=== PATIENT | female | born 1985 | race Caucasian/White ===

== ENCOUNTER 2018-12-04 10:50 | Outpatient (CLI) | payer BC, SELFPAY ==
[2018-12-04 12:54] LABS: TSH (W/Ref FT4) 3.29 uIU/mL (0.358-3.74)
== END 2018-12-04 11:10 ==
PROVIDERS: PCP Nurse Practitioner Family; Visit Provider Nurse Practitioner Family
DX: N92.0 Excessive and frequent menstruation with regular cycle (principal)
CPT/HCPCS: 36415; 84443

== ENCOUNTER 2018-12-17 00:55 | Outpatient (CLI) | payer BC, SELFPAY ==
--- NOTE | 2018-12-17 16:00 | DI.MAMMO_ITS ---
SYMPTOM/DIAGNOSIS: SCREENING, Z12.31, FAMILY H/O BREAST CA MAMMOGRAMS: Mammograms were interpreted according to the usual protocol including computer analysis with CAD system, tomosynthesis and C view imaging. No priors for comparison. Breast density, category C. No suspicious masses or microcalcifications are seen. There is no definite evidence of malignancy. IMPRESSION: Negative mammogram. Routine screening is recommended. Category 1C. MQSA ASSESSMENT OF FINDINGS: Negative. Category 1. Patient will receive a letter notifying them of these results. Bi-RADS category C. The breasts are heterogeneously dense, which may obscure small masses.
== END 2018-12-17 01:15 ==
PROVIDERS: PCP Nurse Practitioner Family; Visit Provider Nurse Practitioner Family
DX: Z12.31 Encounter for screening mammogram for malignant neoplasm of breast (principal); Z80.3 Family history of malignant neoplasm of breast
CPT/HCPCS: 77063; 77067

== ENCOUNTER 2019-12-17 10:32 | Outpatient (REF) | payer OTHER, SELFPAY ==
--- NOTE | 2019-12-17 08:30 | PAPFT_PTH ---
PATIENT: Enriqueta Fontanez LOC: [facility] U#:[id number] AGE/SX: 34/F ROOM: RE12/17/[address]: SELVIN Bunch : 1985 BED: DIS: 12/17/2019 SPEC #: [id number] RECD: 12/17/19 12:57 STATUS: SUSHMA ADKINS #: [id number] JONES: 12/17/19 08:[address]: Ella Murray DEPT: [facility] Cytology RECD BY: Tierra Shukla ENTERED: 12/17/19 12:57 SP TYPE: PAPFT OTHR DR: Damari White Tissues: 1 - CX/ENDOCX FOR PAP SMEARS Procedures: PAP THIN PREP/UVM Screening HPV DNA PROBE Comments: [id number]
== END 2019-12-17 10:52 ==
LOC: LBN 10:32
PROVIDERS: PCP Nurse Practitioner Family; Visit Provider Nurse Practitioner Family
DX: Z12.4 Encounter for screening for malignant neoplasm of cervix (principal); Z11.51 Encounter for screening for human papillomavirus (HPV)
CPT/HCPCS: 88142; 87624

== ENCOUNTER 2020-01-13 01:20 | Outpatient (CLI) | payer OTHER, SELFPAY ==
--- NOTE | 2020-01-13 16:00 | DI.MAMMO_ITS ---
EXAM: MG MAMMO SCREENING CLINICAL HISTORY: screening. TECHNIQUE: Bilateral full field digital CC and MLO mammographic images were obtained with 3D tomosyn thesis and utilizing computer aided detection (CAD). COMPARISON: Available for comparison. FINDINGS: Masses/Architectural Distortion: None seen. Microcalcifications: No suspicious pleomorphic-type are seen. Skin Thickening/Nipple Retraction: None. IMPRESSION: 1. No significant interval change with no specific features of malignancy noted. 2. Unless there is more urgent need, screening mammography is recommended, as per [employer] [place] guidelines. ACR BI-RAD Category- 1 Negative Breast Density - Category C - Heterogeneously dense The mammogram demonstrates the patient's breast tissue is dense. Dense breast tissue is very common a nd is not abnormal but dense breast tissue can make it harder to find cancer on a mammogram. Also, de nse breast tissue may increase their breast cancer risk. This information about the result of the [facility] mogram report was provided to the patient to raise their awareness. Use this report when you speak wi th the patient about their risks for breast cancer, which includes their family history. At that time , you may recommend for more screening tests (Ultrasound or MRI) as they might be useful based on the ir risk. A negative radiographic report should not delay biopsy if a dominant or clinically suspicious mass is present. Up to ten percent of cancers are not identified on mammography. A negative report may reinforce clinical impression. Adenosis and dense breasts may obscure an underlying neoplasm. False positive reports average 6 to 10%. Patient will receive a letter notifying them of these results.
== END 2020-01-13 01:40 ==
PROVIDERS: PCP Nurse Practitioner; Visit Provider Nurse Practitioner Family
DX: Z12.31 Encounter for screening mammogram for malignant neoplasm of breast (principal)
CPT/HCPCS: 77063; 77067

== ENCOUNTER → 2020-12-15 09:47 | Outpatient (REF) | payer BC, SELFPAY ==
--- OUTSIDE RECORDS SUMMARY | 2020-12-15 10:06 | XMS_ITS ---
:1985 External Reference #:[id number] Author Care Team Providers Name Role Phone [facility] Primary Care Provider Unavailable Allergies None recorded. Medications None recorded. Problems None recorded. Procedures Date Name Performed by ? 03/02/2016 Appendectomy Information not avai lable Results Lab Results None recorded. Past Encounters None recorded. Social History Tobacco Smoking Status Never Smoker Vaccine List None recorded. Plan of Care Reminders Provider Appointments None ? ? recorded. Lab None ? ? recorded. Referral None ? ? recorded. Procedures None ? ? recorded. Surgeries None ? ? recorded. Imaging None ? ? recorded. Vitals 02/07/2017 01:00PM ESTABLISHED PATIENT 15 Height Weight BMI 5 ft 1 in 166 lbs 9.6 oz 31.5 kg/m2 11/13/2016 02:00PM NEW PATIENT 60 Height Weight BMI Blood Pressure 5 ft 1 in 164 lbs 16 oz 31.2 kg/m2 110/80 mm[Hg]
[2020-12-15 13:27] LABS: HCT 34.4 % (36.0-46.0); HGB 11.1 g/dL (11.2-15.7); MCHC 32.3 % (32.0-36.0); MCV 86.9 fL (80-95); MPV 11.1 fL (8.0-11.0); Platelet Count 232 10^3/uL (130-400); RBC 3.96 10^6/uL (3.93-5.22); RDW-SD 44.7 fL; WBC 4.24 10^3/uL (4.4-10.8)
[2020-12-15 13:57] LABS: Calculated LDL 105 mg/dL (<100); Cholesterol 172 mg/dL (<200); HDL Cholesterol 54 mg/dL (40-60); TSH 6.18 uIU/mL (0.36-3.74); Triglyceride 66 mg/dL (<150)
[2020-12-15 14:16] LABS: FREE T4 0.98 ng/dL (0.76-1.46)
[2020-12-17 00:08] LABS: Thyroperoxidase Antibody 690 U/mL (<=60)
== END ==
LOC: NCHCN 09:47
PROVIDERS: PCP Nurse Practitioner; Visit Provider Physician Assistant
DX: R53.83 Other fatigue (principal); G47.00 Insomnia, unspecified; Z13.220 Encounter for screening for lipoid disorders
CPT/HCPCS: 80061; 85027; 84439; 84443; 86376

== ENCOUNTER 2021-01-16 00:46 | Outpatient (CLI) | payer BC, SELFPAY ==
--- NOTE | 2021-01-16 09:00 | DI.MAMMO_ITS ---
EXAM: MG MAMMO SCREENING CLINICAL HISTORY: screening,Z12.39. TECHNIQUE: Bilateral full field digital CC and MLO mammographic images were obtained with 3D tomosyn thesis and utilizing computer aided detection (CAD). COMPARISON: Prior mammograms performed 2018 and January 2020. FINDINGS: The fibroglandular tissue pattern is again noted be quite dense, this decreasing the sensitivity of t he mammogram for finding hidden underlying lesions. There are no obvious spiculated masses nor malignant appearing microcalcification groups. There is n o significant architectural distortion nor skin thickening-retraction. IMPRESSION: Dense bilateral fibroglandular tissue. No obvious radiographic evidence of malignancy. BI-RADS Category 1 - Negative Breast Density - Category D - Extremely dense Breast density Category C or D implies that the patient has dense breast tissue. Dense breast tissue can make it harder to find cancer on a mammogram. Dense breast tissue is also associated with an incr eased risk of breast cancer. This information about the result of the mammogram report was provided to the patient to raise their awareness. Use this report when you speak with the patient about their risks for breast cancer, which includes their family history. At that time, you may recommend additional screening tests (Ultrasoun d or MRI) as these tests may add significant information. A negative radiographic report should not delay biopsy if a dominant or clinically suspicious mass is present. Up to ten percent of cancers are not identified on mammography. A negative report may reinforce clinical impression. Adenosis and dense breasts may obscure an underlying neoplasm. False positive reports average 6 to 10%. Patient will receive a letter notifying them of these results.
--- NOTE | 2021-01-16 09:00 | DI.US_ITS ---
EXAM: US PELVIS TRANSVAGINAL CLINICAL HISTORY: MENORRHAGIA, HEAVY PERIODS, ANEMIA, N92.0 TECHNIQUE: Ultrasound of the pelvis was performed both transabdominal and transvaginal. COMPARISON: No exams were available for comparison FINDINGS: UTERUS: Measures 11.9 cm length x 4.0 cm AP x 6.5 cm wide. There are no uterine fibroids. Endometrial thickness measures 7 mm. There is no fluid in the endometrial canal. CERVIX: There are no obvious nabothian cysts. RIGHT OVARY: Measures 3.4 x 2.2 x 2.3 cm In addition to follicular cysts there is a dominant follicular cyst which measures 2.7 x 2.1 x 2.2 cm . LEFT OVARY: Measures 2.8 x 1.9 x 2.1 cm Small follicular cysts. No solid lesions. CUL-DE-SAC: No free fluid evident. There no extraovarian adnexal masses IMPRESSION: 1. Normal appearing uterus and age-appropriate endometrium. 2. There is a 27 x 21 x 22 millimeter cyst in the right ovary, probably follicular. 3. No free fluid evident in the adnexal regions and cul-de-sac. DATA REPOSITORY:
== END 2021-01-16 00:47 ==
LOC: DI 00:47
PROVIDERS: PCP Nurse Practitioner; Visit Provider Nurse Practitioner Family
DX: Z12.31 Encounter for screening mammogram for malignant neoplasm of breast (principal); N92.0 Excessive and frequent menstruation with regular cycle; N83.201 Unspecified ovarian cyst, right side
CPT/HCPCS: 77063; 77067; 76830; 76856

== ENCOUNTER 2021-07-11 14:47 | Outpatient (REF) | payer BC, SELFPAY ==
[2021-07-11 14:02] LABS: HCT 36.9 % (36.0-46.0)
[2021-07-11 14:30] LABS: TSH 1.88 uIU/mL (0.36-3.74)
== END 2021-07-11 14:48 | disposition home or self-care (01) ==
LOC: NCHCN 14:47
PROVIDERS: PCP Nurse Practitioner; Visit Provider Physician Assistant
DX: D64.9 Anemia, unspecified (principal); E03.9 Hypothyroidism, unspecified
CPT/HCPCS: 84443; 85014; 85018

== ENCOUNTER 2022-01-11 10:44 | Outpatient (REF) | payer BC, SELFPAY ==
[2022-01-11 16:06] LABS: TSH 1.74 uIU/mL (0.36-3.74)
== END 2022-01-11 10:45 | disposition home or self-care (01) ==
LOC: NCHCN 10:44
PROVIDERS: PCP Nurse Practitioner; Visit Provider Physician Assistant
DX: E03.9 Hypothyroidism, unspecified (principal)
CPT/HCPCS: 84443

== ENCOUNTER → 2022-06-11 02:12 | Outpatient (CLI) | payer BC, SELFPAY ==
--- NOTE | 2022-06-11 17:00 | DI.MAMMO_ITS ---
Exam(s) MAMMO SCREENING EXAM: MAMMO SCREENING CLINICAL HISTORY: screening. TECHNIQUE: Bilateral full field digital CC and MLO mammographic images were obtained with 3D tomosyn thesis and utilizing computer aided detection (CAD). COMPARISON: Prior mammograms were reviewed, the most recent being January 2021. FINDINGS: Fibroglandular tissue pattern is again noted be dense, this somewhat decreasing the sensitivity of th e mammogram finding hidden lesions. There are no new spiculated masses nor malignant appearing microcalcification groups. There is no significant architectural distortion nor skin thickening-retraction. IMPRESSION: Dense bilateral fibroglandular tissue. No obvious radiographic evidence of malignancy. Given the de nsity of this patient's fibroglandular tissue and very significant family history I recommend bilater al breast ultrasound. BI-RADS Category 0 - Assessment Incomplete: Need additional imaging evaluation Breast Density - Category D - Extremely dense Breast density Category C or D implies that the patient has dense breast tissue. Dense breast tissue can make it harder to find cancer on a mammogram. Dense breast tissue is also associated with an incr eased risk of breast cancer. This information about the result of the mammogram report was provided to the patient to raise their awareness. Use this report when you speak with the patient about their risks for breast cancer, which includes their family history. At that time, you may recommend additional screening tests (Ultrasoun d or MRI) as these tests may add significant information. A negative radiographic report should not delay biopsy if a dominant or clinically suspicious mass is present. Up to ten percent of cancers are not identified on mammography. A negative report may reinforce clinical impression. Adenosis and dense breasts may obscure an underlying neoplasm. False positive reports average 6 to 10%. Patient will receive a letter notifying them of these results.
== END ==
PROVIDERS: PCP Nurse Practitioner; Visit Provider Nurse Practitioner Family
DX: Z12.31 Encounter for screening mammogram for malignant neoplasm of breast (principal); Z80.3 Family history of malignant neoplasm of breast; R92.2 Inconclusive mammogram
CPT/HCPCS: 77063; 77067

== ENCOUNTER 2023-01-02 15:43 | Outpatient (REF) | payer BC, SELFPAY ==
[2023-01-02 20:27] LABS: TSH 2.59 uIU/mL (0.36-3.74)
== END 2023-01-02 15:44 | disposition home or self-care (01) ==
LOC: NCHCN 15:43
PROVIDERS: PCP Nurse Practitioner Family; Visit Provider Physician Assistant
DX: E03.9 Hypothyroidism, unspecified (principal)
CPT/HCPCS: 84443

== ENCOUNTER → 2023-08-22 02:43 | Outpatient (CLI) | payer OTHER, SELFPAY ==
--- NOTE | 2023-08-22 08:15 | DI.MAMMO_ITS ---
Exam(s) US BREAST RT LIMITED MG MAMMO DIAGNOSTIC BI EXAM: MG MAMMO DIAGNOSTIC BI and U/S breast RT limited CLINICAL HISTORY: dense breast tissue, ? lump vs lymph node R armpit,family h/o breast ca,n63. TECHNIQUE: Craniocaudal and mediolateral oblique Full Field Digital Mammography views of the right b reast with Computer Aided Diagnosis followed by Tomosynthesis and right breast ultrasound. COMPARISON: Comparison is made with prior examinations. FINDINGS: Mammography/Tomosynthesis: Masses/Architectural Distortion: None seen. Microcalcifictions: No suspicious pleomorphic-type are seen. Skin Thickening/Nipple Retraction: None. Limited right breast US: Echotexture: Normal appearance of the glandular tissue. Shadowing: No suspicious foci. Cyst: None. Solid lesions: None seen. Ductal dilation: None. IMPRESSION: 1. No evidence of malignancy is noted. 2. Unless there is more urgent need, follow-up screening mammography is recommended, as per [place] guidelines. 3. The findings were discussed with the patient on the date of the examination. BI-RADS Category 1 - Negative Breast Density - Category D - Extremely dense Breast density Category C or D implies that the patient has dense breast tissue. Dense breast tissue can make it harder to find cancer on a mammogram. Dense breast tissue is also associated with an incr eased risk of breast cancer. This information about the result of the mammogram report was provided to the patient to raise their awareness. Use this report when you speak with the patient about their risks for breast cancer, which includes their family history. At that time, you may recommend additional screening tests (Ultrasoun d or MRI) as these tests may add significant information. A negative radiographic report should not delay biopsy if a dominant or clinically suspicious mass is present. Up to ten percent of cancers are not identified on mammography. A negative report may reinforce clinical impression. Adenosis and dense breasts may obscure an underlying neoplasm. False positive reports average 6 to 10%. Patient will receive a letter notifying them of these results.
== END ==
LOC: DI 02:44
PROVIDERS: PCP Physician Assistant; Visit Provider Nurse Practitioner Women's Health
DX: Z12.31 Encounter for screening mammogram for malignant neoplasm of breast (principal); Z80.3 Family history of malignant neoplasm of breast; R92.8 Other abnormal and inconclusive findings on diagnostic imaging of breast
CPT/HCPCS: 76642; 77062; 77066; G0279

== ENCOUNTER 2023-12-31 13:42 | Outpatient (REF) | payer OTHER, SELFPAY ==
--- NOTE | 2023-12-31 13:15 | PAPFT_PTH ---
PATIENT: Enriqueta Fontanez LOC: [facility] U#:[id number] AGE/SX: 38/F ROOM: RE12/31/[address]: Loreto Quispe MD : 1985 BED: DIS: 12/31/2023 SPEC #: [id number] RECD: 01/01/24 12:51 STATUS: SUSHMA REQ #: [id number] JONES: 12/31/23 13:[address]: Loreto Quispe DEPT: [facility] Cytology RECD BY: Tierra Shukla ENTERED: 01/01/24 12:52 SP TYPE: PAPFT OTHR DR: Himanshu Martinez Tissues: 1 - CX/ENDOCX FOR PAP SMEARS Procedures: PAP THIN PREP/UVM Screening HPV DNA PROBE Comments: [id number]
== END 2023-12-31 13:43 | disposition home or self-care (01) ==
LOC: LBN 13:42
PROVIDERS: PCP Physician Assistant; Visit Provider Obstetrics & Gynecology
DX: Z12.4 Encounter for screening for malignant neoplasm of cervix (principal)
CPT/HCPCS: 88142; 87624

== ENCOUNTER 2024-01-06 05:25 | Outpatient (CLI) | payer OTHER, SELFPAY ==
[2024-01-06 15:27] LABS: HCT 33.6 % (36.0-46.0); HGB 11.2 g/dL (11.2-15.7); MCH 30.7 pg (27.0-33.0); MCHC 33.3 % (32.0-36.0); MCV 92 fL (80-95); MPV 9.9 fL (8.0-11.0); Platelet Count 195 10^3/uL (130-400); RBC 3.65 10^6/uL (3.93-5.22); RDW 13.2 % (11.7-14.6); RDW-SD 44.5 fL; WBC 7.48 10^3/uL (4.4-10.8)
== END 2024-01-06 05:26 | disposition home or self-care (01) ==
LOC: LBO 05:25
PROVIDERS: PCP Physician Assistant; Visit Provider Obstetrics & Gynecology
DX: Z01.818 Encounter for other preprocedural examination (principal)
CPT/HCPCS: 36415; 85027; 86850; 86900; 86901

== ENCOUNTER 2024-01-08 07:04 | Day surgery (SDC) | payer OTHER, SELFPAY ==
[2024-01-08 07:25] VITALS: BP 115/75; PULSE 86; RESP 16; TEMP 36.5; O2SAT 99
[2024-01-08] MEDS: Lactated Ringers 1,000 ML 125 ML IV (07:48)
--- NOTE | 2024-01-08 08:43 | W.ANESPRE ---
General Info Date of Service Date Performed: 01/08/24 Height: 5 ft 0.5 in Weight: 68.3 kg Body Mass Index (BMI): 28.9 Surgical Procedure: Operation Date: 01/08/24 09:10 Proposed Procedure Side Surgeon p Dilation & Curettage with Hysteroscopy Loreto Quispe MD s Endometrial Ablation, Glen Quispe MD Meds Allergies and Home Medications Allergies Allergy/AdvReac Type Severity Reaction Status Date / Time sulfamethoxazole Allergy Severe Anaphylaxsi Verified 01/08/24 07:23 [From Bactrim] s trimethoprim [From Bactrim] Allergy Severe Anaphylaxsi Verified 01/08/24 07:23 s Home Medication Medication Instructions Recorded levothyroxine 50 mcg capsule 50 mcg PO DAILY 12/29/20 trazodone 50 mg tablet 50 mg PO QHS PRN 12/29/20 buspirone 7.5 mg tablet 7.5 mg PO BID 12/31/23 Current Visit Medications: Current Medications Generic Name Dose Route Start Last Admin Trade Name Freq PRN Reason Stop Dose Admin Ringer's Solution 1,000 mls @ 125 mls/hr 01/08/24 06:00 01/08/24 07:48 IV 02/06/24 23:59 125 mls/hr INFUSION BRIDGET Administration IV Miscellaneous Supplies 1 each 01/08/24 06:00 Iv Access IV 02/06/24 23:59 DIRECTED BRIDGET Sodium Chloride 0 ml 01/08/24 06:00 Normal Saline Flush 10 Ml Syr IV 02/06/24 23:59 PRN PRN Sodium Chloride 0 ml 01/08/24 06:00 Normal Saline 10 Ml Vial IJ 02/06/24 23:59 DIRECTED PRN Sterile Water 0 ml 01/08/24 06:00 Water,Injection,Sterile 10 Ml Vial IJ 02/06/24 23:59 DIRECTED PRN PFSH Active Problems Active Problems: Problem Status Onset Code Menorrhagia N92.0 Vitamin D deficiency E55.9 Obesity E66.9 Hypothyroid E03.9 Family history of breast cancer 02/15/17 Z80.3 Medical History Medical History Family history of breast cancer (02/15/17) Sister Dx at 40, Surgical History Surgical History Appendectomy (~01/2016) Tobacco Smoking/Tobacco Use Status: Never Alcohol Alcohol Intake: current Alcohol intake frequency: holidays/special occasions only Alcohol type: wine and hard liquor Substance Use Substance use: Never Substance use type: does not use Prental History History 3 Para 3 Hx # Term Pregnancies 3 Multiple births Hx # Pregnancies Ectopic pregnancies AB induced Hx Number of Living Children 3 AB spontaneous Past Pregnancies Del. Date GA/Weeks # Preg Succ Route Wgt Sex Labor Lgth Anesthesia Location Prov Complic 10/03/03 40 No Yes vaginal 3260.195 g Male 10/21/07 38 No Yes vaginal 4167.38 g Female 06/13/11 38 No Yes vaginal 4082.331 g Female Vital Signs and Lab Results Vital Signs Most Recent Vital Signs in EMR: Most Recent Vital Signs Temp Pulse Resp BP Pulse Ox 36.5 C 86 16 115/75 99 01/08/24 07:25 01/08/24 07:25 01/08/24 07:25 01/08/24 07:25 01/08/24 07:25 Point of Care Results Point of Care Results: POC- Test(urine) Negative 01/08/24 07:55 Lab Results Blood Type / Crossmatch: Patient ABO/Rh A Positive 01/06/24 Antibody Screen NEGATIVE 01/06/24 Complete Blood Count: White Blood Count 7.48 10^3/uL (4.4-10.8) 01/06/24 15:07 Red Blood Count 3.65 10^6/uL (3.93-5.22) L 01/06/24 15:07 Hemoglobin 11.2 g/dL (11.2-15.7) 01/06/24 15:07 Hematocrit 33.6 % (36.0-46.0) L 01/06/24 15:07 Platelet Count 195 10^3/uL (130-400) 01/06/24 15:07 Complete Metabolic Panel: No Data to Display Liver Function Panel: No Data to Display Coagulation Panel: No Data to Display Cardiac Panel: No Data to Display Arterial Blood Gas: No Data to Display Venous Blood Gas: No Data to Display Pancreas Panel: No Data to Display Thyroid Panel: No Data to Display Infectious Disease: No Data to Display Blood Cultures: No Data to Display Toxicology Panel: No Data to Display Panel: No Data to Display Anesthesia Assessment and Plan Anesthesia History Personal History: No History of Anesthesia Complications Family History: No Family History of Anesthesia Complications Exercise Tolerance Exercise Tolerance: Metabolic Equivalents>4 Pertinent Negatives Pertinent Negatives: No Symptoms of GERD, No Major Cardiovascular Symptoms or Complaints, No Major Pulmonary Symptoms or Complaints and No History of CVA/TIA Cardiac & Pulmonary Exam Cardiac Exam: Normal S1/S2 Heart Sounds Pulmonary Exam: Clear Bilateral Breath Sounds Implantable Cardiac Device Does patient have a Pacemaker or an ICD?: No Airway Exam Known Difficult Airway: No Mallampati Class: 3 Mouth Opening: Normal (> 3cm) Thyromental Distance: Greater than 3 cm Neck Range of Motion: Full ROM Neck Circumference: Normal Teeth Condition: Normal Dentition ASA Classification ASA Score: ASA 2 Emergency Case?: No NPO Status NPO Status: NPO Clears >2 hours, Solids >8 hours Status Status: Negative HCG Anesthesia Plan Resuscitation Status: Full Code Anesthesia Technique: General Anesthesia Airway Planned: Natural Airway Monitors Used: Standard Monitors
[2024-01-08] MEDS: Bupivacaine 0.25% Pres-Free 30 ML VIAL (09:35)
--- NOTE | 2024-01-08 09:35 | ENDOMET_PTH ---
PATIENT: Enriqueta Fontanez LOC: [facility] U#:[id number] AGE/SX: 38/F ROOM: RE01/08/[address]: Loreto Quispe MD : 1985 BED: DIS: 01/08/2024 SPEC #: [id number] RECD: 01/08/24 12:56 STATUS: SUSHMA REQ #: [id number] JONES: 01/08/24 09:[address]: Loreto Quispe DEPT: Surgical Specimen RECD BY: Tierra Shukla ENTERED: 01/08/24 12:56 SP TYPE: Endomet OTHR DR: Himanshu Martinez Tissues: 1 - ENDOMETRIUM BX/TALISHA Procedures: GROSS AND MICRO LEVEL 4 Comments: [id number]
[2024-01-08 09:42] VITALS: BMI 28.9
--- NOTE | 2024-01-08 10:04 | W.PM.OP ---
Date of service: 01/08/24 Time of Service: 10:04 Operative Note Operative Note DATE OF PROCEDURE: 01/08/24 PRE-OP DIAGNOSIS: Abnormal uterine bleeding, failed medical management POST-OP DIAGNOSIS: same PROCEDURE: Hysteroscopy, dilation and curettage, novasure endometrial ablation SURGEON: Loreto Quispe Refer to Anesthesia Record ESTIMATED BLOOD LOSS: 20 COMPLICATIONS: None Patient was transported to: same day Patient's condition: stable Indications: Pt had a Mirena IUD placed for cycle management but noticed a distinct change in her mood while it was in place so she had it removed. She opts for novasure ablation for management of the bleeding. Findings: Normal appearing endometrial cavity that appeared fully ablated s/p procedure. Procedure Description: After informed consent was signed the patient was taken to the operating room and given General room air anesthesia.? SCDs were placed on her legs.? She was prepped and draped in the dorsal lithotomy position in the [facility].? A time out was performed. Her bladder was drained of urine if not done just prior to arrival to the room.? Exam under anesthesia revealed normal external genitalia, vagina normal for age and a normal sized uterus. A speculum was placed into the vagina to reveal the cervix.? The anterior lip of the cervix was grasped with a single tooth tenaculum.? [A paracervical block was given with 20ml of 0.25% marcaine.]? The cervical length was measured with a large dilator at 5cm. The cervix was then dilated until a uterine sound could be inserted to measure the total length of 10cm. The?cavity length was then calculated at 5cm. The hysteroscope was assembled and the uterine cavity was visualized. No obvious abnormalities were noted. A sharp curettage was performed. The novasure device was opened and the cavity length set. It was inserted into the endometrial cavity and the width was measured at 4.1cm. The cavity assessment was performed and passed. The device was then deployed for the appropriate amount of time. The device was removed and the wand inspected and appeared thoroughly charred. The hysteroscope was again inserted into the endometrial cavity and it appeared to be thoroughly treated. It was removed from the endometrial cavity. The tenaculum was removed from the cervix with good hemostasis.? The speculum was removed from the vagina. The patient was placed back into the supine position.? She was moved to the stretcher and taken to the recovery room in stable condition.
[2024-01-08 10:07] VITALS: BP 106/66; PULSE 87; RESP 14; TEMP 36.1; O2SAT 100
--- NOTE | 2024-01-08 10:13 | W.ANESPOSTOP ---
Postoperative Evaluation Date, Time and Location Date Performed: 01/08/24 Time Performed: 10:46 Patient Location: Day Surgery Unit Vital Signs Most Recent Imported Vital Signs: Most Recent Vital Signs Temp Pulse Resp BP Pulse Ox 36.1 C L 87 14 106/66 100 01/08/24 10:07 01/08/24 10:07 01/08/24 10:01/08/24 10:01/08/24 10:07 Pain Score Most Recent Pain Score: Most Recent Pain Score Pain Level 0 01/08/24 10:07 Assessment Mental Status: Awake (Alert & Oriented to Patient Baseline) Airway and Respiratory Function: Patent airway with normal (patient baseline) respiratory exam Cardiovascular Function: Hemodynamically Stable Hydration Status: Adequately Hydrated Nausea & Vomiting: No Nausea or Vomiting Pain: Pain is tolerable per patient (some low back cramping, tylenol ordered) Peripheral Nerve Block: Patient did not receive a nerve block
--- NOTE | 2024-01-08 10:41 | PDOC.DSDIS_ITS ---
Date of service: 01/08/24 Time of Service: 10:41 Discharge Plan Disposition Patient Disposition: Home Discharge Details Attending Provider: Loreto Quispe Primary Care Provider: Himanshu Martinez Home Meds and New Rx's Prescriptions: No Action levothyroxine 50 mcg capsule 50 mcg PO DAILY trazodone 50 mg tablet 50 mg PO QHS PRN buspirone 7.5 mg tablet 7.5 mg PO BID Patient Comments: TAKE 1 TABLET BY MOUTH TWICE DAILY Discharge Instructions Stand Alone Forms: Anesthesia Discharge Inst., DSU Post [employer]OC[employer] Surg W/O Incision, Nik Isidro (DSU) Activity:: Activity as Tolerated Diet:: As Tolerated Discharge Orders Discharge Orders: Discharge Order (Routine); Ordered 01/08/24 Ordered By: Loreto Quispe DS: Diagnosis Discharge Diagnosis (1) Menorrhagia: Status: Acute Asessment and Plan: S/p successful endometrial ablation. 2wk post-op visit
[2024-01-08 10:46] VITALS: BP 103/70; PULSE 67; RESP 16; TEMP 36.5; O2SAT 97
[2024-01-08] MEDS: Acetaminophen 500 MG TAB 1000 MG PO (11:02)
== END 2024-01-08 11:47 | disposition home or self-care (01) ==
PROVIDERS: PCP Physician Assistant; Visit Provider Obstetrics & Gynecology
PROC: 0UDB8ZZ Extraction of Endometrium, Via Natural or Artificial Opening Endoscopic (ICD-10-PCS; CPT 58558; principal; 2024-01-08 09:00)
PROC: (CPT 58353; 2024-01-08 09:00)
DX: N92.0 Excessive and frequent menstruation with regular cycle (principal); E03.9 Hypothyroidism, unspecified; E55.9 Vitamin D deficiency, unspecified
CPT/HCPCS: 58563; 81025; 88305; J0665; J1100; J1885; J2001; J2250; J2405; J2704

== ENCOUNTER 2025-01-28 12:02 | Outpatient (REF) | payer OTHER, SELFPAY ==
[2025-01-28 15:43] LABS: Anion Gap 9.3 mmol/L (3-11); BUN 12 mg/dL (7-18); CO2 25.7 mmol/L (21.0-32.0); CREATININE 0.8 mg/dL (0.55-1.02); Calcium 9.5 mg/dL (8.5-10.1); Chloride 107 mmol/L (98-107); Estimated GFR 94.87 (mL/min/1.73m2); Glucose 88 mg/dL (74-106); Potassium 4.6 mmol/L (3.5-5.1); Sodium 142 mmol/L (136-145); TSH 2.52 uIU/mL (0.36-3.74)
== END 2025-01-28 12:03 | disposition home or self-care (01) ==
LOC: NCHCN 12:02
PROVIDERS: PCP Physician Assistant; Visit Provider Physician Assistant
DX: E03.9 Hypothyroidism, unspecified (principal)
CPT/HCPCS: 80048; 84439; 84443

== ENCOUNTER 2025-02-25 17:36 | Outpatient (REF) | payer OTHER, SELFPAY | END 2025-02-25 17:37 | disposition home or self-care (01) | LOC: LBN 17:36 | PROVIDERS: PCP Physician Assistant; Visit Provider Physician Assistant | DX: J02.9 Acute pharyngitis, unspecified (principal); Z20.828 Contact with and (suspected) exposure to other viral communicable diseases; R68.89 Other general symptoms and signs | CPT/HCPCS: 87077; 87070 ==